=== PATIENT | female | born 1980 | race Caucasian/White ===

== ENCOUNTER → 2017-05-26 07:02 | Outpatient (CLI) | payer OTHER, SELFPAY ==
[2017-05-26 07:17] LABS: Bedside Glucose 95 mg/dL (70-110)
[2017-05-26 09:21] LABS: Glucose GTT-Gestation. Fasting 87 mg/dL (<105)
[2017-05-26 12:07] LABS: Glucose GTT-Gestational 1 Hr 172 mg/dL (<190)
[2017-05-26 12:07] LABS: Glucose GTT-Gestational 3 Hr 136 L (<145)
[2017-05-26 12:08] LABS: Glucose GTT-Gestational 2 Hr 133 mg/dL (<165)
== END ==
PROVIDERS: Family Provider Family Medicine; PCP Family Medicine; Visit Provider Obstetrics & Gynecology
DX: O99.815 Abnormal glucose complicating the puerperium (principal)
CPT/HCPCS: 36415; 82951; 82952; 82962

== ENCOUNTER → 2017-06-03 13:08 | Outpatient (CLI) | payer OTHER, SELFPAY ==
[2017-06-03 11:37] VITALS: BP 120/73; BMI 26.9
== END ==
PROVIDERS: Family Provider Family Medicine; PCP Family Medicine; Visit Provider Obstetrics & Gynecology
DX: R30.0 Dysuria (principal)
CPT/HCPCS: 87086; 87088

== ENCOUNTER → 2017-07-10 07:59 | Outpatient (CLI) | payer OTHER, SELFPAY ==
--- NOTE | 2017-07-10 08:01 | US_ITS ---
STUDY: SECOND AND THIRD TRIMESTER OBSTETRICAL ULTRASOUND - LIMITED REASON FOR EXAM: Female, 36 years old. Routine survey. LMP: November 01, 2016. PRIOR ULTRASOUND: Comparison is made with prior study dated March 27, 2017. TECHNIQUE: Transabdominal ultrasound evaluation was performed. FINDINGS: There is a single intrauterine fetus. The fetus is in a cephalic presentation. There is demonstrated cardiac activity with a heart rate of 129 bpm. There is a normal amniotic fluid volume. The largest amniotic fluid pocket measures 6.5 cm x 6.6 cm. The amniotic fluid index (AIDEE) is 15.1 cm. The placenta is posterior in location and is not low lying. There are Grade 1 placental changes. There is subvisualization of the cervix due to the position of the head. BIOMETRY: BPD: 8.26 cm: 33 weeks, 2 days HC: 30.59 cm: 34 weeks, 1 days AC: 31.5-6 on the: 35 weeks, 4 days FL: 6.76 on the: 34 weeks, 6 days Age by LMP: 35 weeks, 6 days. LAURIE by LMP: August 08, 2017. age by prior US: 35 weeks, 4 days. LAURIE by prior US: August 10, 2017. age by current US: 34 weeks, 4 days. LAURIE by current US: August 17, 2017. Estimated weight: 2538 grams, +/- 371 grams, 25 percentile. Gender: Indeterminant US/OB Limited With Biometrics IMPRESSION: Single live intrauterine gestation with a mean gestational age of 35 weeks and 4 days. The measurements obtained today following with an normal expected range. Electronically Signed: Lui Mojica MD at 11:16 EDT Tel [phone], Service support ,
== END ==
PROVIDERS: Family Provider Family Medicine; PCP Family Medicine; Visit Provider Obstetrics & Gynecology
DX: O26.843 Uterine size-date discrepancy, third trimester (principal); Z3A.00 Weeks of gestation of pregnancy not specified
CPT/HCPCS: 76816

== ENCOUNTER → 2017-07-15 12:13 | Outpatient (CLI) | payer OTHER, SELFPAY ==
[2017-07-15 15:09] LABS: Group B Strep DNA By PCR Negative (Negative); Internal Control PASS; Probe Check PASS; Specimen Processing Control PASS
== END ==
PROVIDERS: Family Provider Family Medicine; PCP Family Medicine; Visit Provider Obstetrics & Gynecology
DX: O09.529 Supervision of elderly multigravida, unspecified trimester (principal); Z3A.00 Weeks of gestation of pregnancy not specified
CPT/HCPCS: 87081; 87653

== ENCOUNTER 2017-08-04 08:55 | Inpatient (IN) | payer OTHER, SELFPAY ==
[2017-08-04 09:15] VITALS: BMI 28.3
[2017-08-04] MEDS: Lactated Ringers 1,000 ML 50 ML IV ×2 (09:20→10:29)
[2017-08-04 09:47] LABS: Hematocrit 32.4 % (37-47); Hemoglobin 10.8 g/dl (12.0-15.0); Mean Corp Hgb Conc 33.3 g/gl (32-36); Mean Corpuscular Hgb 28.1 pg (27.0-32.0); Mean Corpuscular Volume 84.4 fL (81-99); Mean Platelet Vol. 9.2 fl (6.2-12.0); Platelet Count 189 K/mm3 (150-450); RBC Distribution Width CV 13.8 % (11.6-14.6); RBC Distribution Width SD 41.9 fl (35.1-43.9); Red Blood Count 3.84 M/mm3 (4.2-5.4); Scan Indicated on CBC? Y/N NO; White Blood Count 13.7 K/mm3 (4.4-11.0)
[2017-08-04] MEDS: Oxytocin 30 units/NS 500 ml 30 UNITS/500 ML IV.SOLN 334 UNITS IV (12:50)
[2017-08-04] MEDS: Oxytocin 30 units/NS 500 ml 30 UNITS/500 ML IV.SOLN 167 UNITS IV (13:20)
[2017-08-04 19:15] VITALS: BP 119/76; PULSE 111; RESP 16; TEMP 37.4; O2SAT 98
[2017-08-05] MEDS: Naproxen 250 MG Tablet PO (00:08)
[2017-08-05 00:15] VITALS: BP 113/74; PULSE 84; RESP 16; TEMP 36.5; O2SAT 98
[2017-08-05 03:55] VITALS: BP 107/73; PULSE 85; RESP 16; TEMP 36.3; O2SAT 96
[2017-08-05 08:22] VITALS: BP 118/75; PULSE 98; RESP 16; TEMP 36.6; O2SAT 100
[2017-08-05] MEDS: Sertraline 100 MG Tablet PO (10:02)
[2017-08-05] MEDS: Prenatal Vits Tablet 1 TABLET PO (10:02)
--- NOTE | 2017-08-05 11:20 | HP.PCM_ITS ---
- Problem List (1) Active labor at term Status: Acute (2) Genital HSV Status: Acute Qualifiers: Comment: acyclovir at term (3) Uterine size-date discrepancy in third trimester Status: Acute Comment: growth us ordered (4) History of oligohydramnios in prior , currently in third trimester Status: Acute Comment: us at 36 weeks (5) , high-risk, maternal age 35+ multigravida Status: Acute Comment: PRR LAURIE 08/08/17 gender surprise PC Monster Everette Palomares (6) Abnormal glucose complicating the puerperium Status: Acute Comment: 3 hour gtt WNL History Date of Admission: 08/04/17 Final LAURIE: 08/10/17 Gestational age: 39 Weeks and 2 Days History of this : 36 yo @ 39 weeks presents iAL 8 cm Pertinent Past Medical History: Past Medical History (Last Reviewed 07/29/17 @ 11:28 by Penny Kelley) anxiety (Acute) depression (Acute) Past Surgical History (Last Reviewed 07/29/17 @ 11:28 by Penny Kelley) Adnoids (Acute) FPL Tendon Repair (Acute) Tonsils (Acute) basal cell (Acute) Mom's Labs & Results 08/04/17 08/04/17 09:20 09:20 WBC 13.7 H RBC 3.84 L Hgb 10.8 L Hct 32.4 L MCV 84.4 MCH 28.1 MCHC 33.3 RDW 13.8 RDW Differential 41.9 Plt Count 189 MPV 9.2 Blood Type B POSITIVE Antibody Screen NEGATIVE Course Did the patient receive Yes care? Labs Blood Type: B RH: POSITIVE RPR/VDRL/Syphilis Nonreactive Rubella status Immune HbSAg Negative Date Done: 02/03/17 Chlamydia Negative Gonorrhea Negative HIV/AIDS Non-Reactive Group B Strep: Negative Current Obstetrical History Gestational Diabetes No Incompetent Cervix No Infertility No IUGR No Macrosomia No Hypertension/Pre-eclampsia No Placenta Previa/Abruption No PTL/PROM No Uterine anomaly No Oligohydramnios No Polyhydramnios No Multiple gestation No Past Medical History Asthma No Diabetes No Hypertension No Heart disease No Mitral valve prolapse No Neurologic/Seizure disorder/ No Migraines Kidney disease No Liver disease No Varicosities No Clotting disorders/Hx of DVT No Thyroid Dysfunction No Other medical diseases No Psychiatric disorders Yes: depression/ anxiety Major trauma No Abnormal PAP smear Yes: 19 y/o, coloposcopy Sleep apnea No Mammogram in the last 2 years No Social History Marital Status: Alleged father Everette Childs Smoking No Smoking Status Never smoker Allergies dextromethorphan Allergy (Verified 07/29/17 11:27) Hives Current Medications Acetaminophen (Tylenol) 1,000 mg PO Q8H PRN PRN PRN Reason: MILD PAIN (1-3/10)/Temp>99.6F Bisacodyl (Dulcolax) 10 mg RECTAL UD PRN PRN Reason: If no BM Dibucaine (Dibucaine) 1 applic TOPICAL TID PRN PRN; Protocol PRN Reason: Discomfort Hydrocortisone (Hytone) 1 applic TOPICAL TID PRN PRN; Protocol PRN Reason: Discomfort Methylergonovine Maleate (Methergine) 0.2 mg IM X1 PRN PRN Reason: Excess bleeding/uterine atony Naproxen (Naprosyn) 250 - 500 mg PO Q8H PRN PRN PRN Reason: MILD PAIN (1-3/10) Last Admin: 08/05/17 00:08 Dose: 500 mg Ondansetron HCl (Zofran) 4 mg IV Q4H PRN PRN PRN Reason: Nausea Oxycodone HCl (Oxyir) 5 - 10 mg PO Q4H PRN PRN PRN Reason: MOD-SEVERE PAIN (4-10/10) Multivit/Folic Acid/Iron (Prenatabs Fa) 1 tablet PO DAILY [facility] Last Admin: 08/05/17 10:02 Dose: 1 tablet Senna/Docusate Sodium (Senokot-S, Ines-Colace) 1 - 2 tablet PO DAILY PRN PRN PRN Reason: Constipation Sertraline HCl (Zoloft) 100 mg PO DAILY [facility] Last Admin: 08/05/17 10:02 Dose: 100 mg Simethicone (Mylicon) 80 mg PO PCHS PRN PRN Reason: Indigestion/Stomach pain Sodium Chloride () 5 - 15 ml IV UD PRN PRN Reason: SALINE FLUSH Smoking Status: Never smoker Alcohol: None Drug Use: none Number of Fetus(es): 1 - fht 140 moderate variability reactive Review of Systems Constitutional: Denies: Chills, Fever, Weight Change HEENT: Denies: Head Aches, Sinus Congestion, Sinus Drainage Cardiovascular: Denies: Chest Pain, Palpitations Respiratory: Denies: Cough, Shortness of breath at rest, Sputum production Gastrointestinal: Reports: Abdominal Pain. Denies: Nausea, Vomiting Genitourinary: Denies: Dysuria Gynecological: Reports: Vaginal bleeding, Vaginal discharge Musculoskeletal: Denies: Joint Pain, Joint Tenderness Skin: Denies: Rash, Wounds Neurological: Denies: Numbness, Tingling, Focal weakness Psychiatric: Denies: Anxiety, Depression, Homicidal Ideations, Suicidal Ideations Hematologic/ Lymphatic: Denies: Easy Bruising, Easy Bleeding Physical Exam Vitals: Vital Signs Temp Pulse Resp BP Pulse Ox 97.8 F 98 16 118/75 100 08/05/17 08:22 08/05/17 08:22 08/05/17 08:22 08/05/17 08:22 08/05/17 08:22 General: Alert, Oriented x3, No apparent distress Cardiovascular: Regular rate Lungs: Normal air movement Abdomen: Soft, Non Tender, Gravid Extremities:: No edema Estimated gestational size: Appropriate for gestational size Presentation: Cephalic Cervix Dilation (cm): 8 Assessment/Plan Active and Suspected Problems (Last Reviewed 07/29/17 @ 11:28 by Penny Kelley) Active labor at term (Acute) 36 y o 39 weeks IAL epi arom clear fluid
--- NOTE | 2017-08-05 11:20 | PCM.OB.VAG ---
- Problem List (1) Active labor at term Status: Acute (2) Genital HSV Status: Acute Qualifiers: Comment: acyclovir at term (3) Uterine size-date discrepancy in third trimester Status: Acute Comment: growth us ordered (4) History of oligohydramnios in prior , currently in third trimester Status: Acute Comment: us at 36 weeks (5) , high-risk, maternal age 35+ multigravida Status: Acute Comment: PRR LAURIE 08/08/17 gender surprise PC Monster Everette Palomares (6) Abnormal glucose complicating the puerperium Status: Acute Comment: 3 hour gtt WNL Vaginal Delivery Maternal Presentation: Active Labor 39 weeks Amniotic Membrane Rupture Type: Artificial Amniotic Fluid Description: Clear Final LAURIE: 08/10/17 Gestational age: 39 Weeks and 2 Days Date of Procedure: 08/04/17 Pre-Operative Diagnosis: In active labor Post-Operative Diagnosis: same Surgery/ Procedure Performed: Spontaneous Vaginal Delivery Type of Anesthesia: Epidural Description of Procedure: Patient began pushing and delivered the head in the JESSA presentation. The head was delivered atraumatically . The anterior and posterior shoulders delivered without complication followed by the rest of the infant and the was placed on the maternal abdomen. Delayed cord clamping was employed for approximately 60 seconds. Cord was clamped and cut and gentle traction was applied to the cord and the placenta delivered spontaneously immediately following it was noted to be intact with three-vessel cord. The perineum and vagina were inspected and noted to have no laceration. EBL was 200 cc. Patient and infant tolerated delivery well. Presentation: JESSA Placental Delivery Description: Spontaneous Placenta Disposition: [facility] Cord Vessel Description: 3 Vessels Cord Entanglement: None Infant A gender: Female Episiotomy Description: None Laceration: None Medications given after delivery: IV Pitocin Complications: None
--- NOTE | 2017-08-05 11:23 | PCM.PN.OB ---
Patient Problems: Active and Suspected Problems (Last Reviewed 07/29/17 @ 11:28 by Penny Kelley) Active labor at term (Acute) Subjective: doing well n ocomplaints - Physical Exam General: Alert, Oriented x3 Vital Signs Temp Pulse Resp BP Pulse Ox 97.8 F 98 16 118/75 100 08/05/17 08:22 08/05/17 08:22 08/05/17 08:22 08/05/17 08:22 08/05/17 08:22 Oxygen Delivery Method Room Air Weight: 145 lb 4.554 oz Body Mass Index (BMI) 28.3 Intake and Output for Last 24 Hours 08/03/17 08/04/17 08/05/17 23:59 23:59 23:59 Intake Total 2184 / 2184 Output Total 600 / 600 Balance 1584 / 1584 Medical Necessity - Tobacco Use Smoking Status: Never smoker Assessment/Plan Active and Suspected Problems (Last Reviewed 07/29/17 @ 11:28 by Penny Kelley) Active labor at term (Acute) p routine care sd home
--- NOTE | 2017-08-05 11:23 | PCM.DCVAG ---
Discharge Diet: No Restrictions Discharge Activity: Return to Normal Activity, May not drive while taking narcotic pain medications., May Shower May resume sexual activity in: 4-6 weeks Call your doctor if your incision/area has: Continuous Slow Oozing, Sudden Increased Bleeding, Increased Pain/ Swelling, Increased Redness, Foul Smelling Discharge Additional Instructions: If you experience any of the following, contact your healthcare provider. Bleeding that soaks a pad every hour for 2 hours Fever 100.4 or higher Unrelieved incision or abdominal pain Swelling, redness, discharge or bleeding from your incision or episiotomy site Your incision begins to separate Problems urinating (including inability to urinate or burning while urinating). Visual changes Severe headache Flu-like symptoms Pain or redness in one of both of your breasts Pain, warmth, tenderness or swelling in your legs, especially the calf area Frequent nausea and vomiting Symptoms of depression or anxiety If you experience any of the following, call 911 or go to the nearest Emergency Room. Chest pain Problems breathing Seizure activity Partial or complete paralysis of a body part, slurred speech, weakness or drooping of the face, or a sudden inability to walk or hold your balance Allergies/Adverse Reactions: Allergies dextromethorphan Allergy (Verified 07/29/17 11:27) Hives Medications to take at Discharge Vits [Prenatabs FA ] 1 tab PO DAILY 09/07/15 Zoloft 100 mg PO DAILY 09/07/15 Valacyclovir HCl [Valacyclovir] 500 mg PO BID 08/04/17 Please Follow Up With: Virgen Mcnally MD - [phone] When: Call to make an appointment with your doctor in 6 weeks. If you had elevated Blood pressure or 4th degree laceration you will need to be seen in 2 weeks. Primary Care Physician: Everette Palomares DO [Primary Care Provider] -
--- NOTE | 2017-08-05 11:24 | DCINST_ITS ---
Discharge Diet: No Restrictions Discharge Activity: Return to Normal Activity, May not drive while taking narcotic pain medications., May Shower May resume sexual activity in: 4-6 weeks Call your doctor if your incision/area has: Continuous Slow Oozing, Sudden Increased Bleeding, Increased Pain/ Swelling, Increased Redness, Foul Smelling Discharge Additional Instructions: If you experience any of the following, contact your healthcare provider. * Bleeding that soaks a pad every hour for 2 hours * Fever 100.4 or higher * Unrelieved incision or abdominal pain * Swelling, redness, discharge or bleeding from your incision or episiotomy site * Your incision begins to separate * Problems urinating (including inability to urinate or burning while urinating) . * Visual changes * Severe headache * Flu-like symptoms * Pain or redness in one of both of your breasts * Pain, warmth, tenderness or swelling in your legs, especially the calf area * Frequent nausea and vomiting * Symptoms of depression or anxiety If you experience any of the following, call 911 or go to the nearest Emergency Room. * Chest pain * Problems breathing * Seizure activity * Partial or complete paralysis of a body part, slurred speech, weakness or drooping of the face, or a sudden inability to walk or hold your balance Allergies/Adverse Reactions: Allergies dextromethorphan Allergy (Verified 07/29/17 11:27) Hives Medications to take at Discharge Vits [Prenatabs FA ] 1 tab PO DAILY 09/07/15 Zoloft 100 mg PO DAILY 09/07/15 Valacyclovir HCl [Valacyclovir] 500 mg PO BID 08/04/17 Please Follow Up With: Virgen Mcnally MD - [phone] When: Call to make an appointment with your doctor in 6 weeks. If you had elevated Blood pressure or 4th degree laceration you will need to be seen in 2 weeks. Primary Care Physician: Everette Palomares DO [Primary Care Provider] -
[2017-08-05 12:00] VITALS: BP 114/76; PULSE 95; RESP 16; TEMP 36.7; O2SAT 98
--- NOTE | 2017-08-05 13:30 | NURSING ---
Talked with patient about history of anxiety and depression. Asked patient if she feels like she has the resources she needs or if she would like to talk with social service coordinator prior to discharge. Pt stated she had needed resources and did not wish to talk with social service coordinator.
--- NOTE | 2017-08-05 14:53 | NURSING ---
Reviewed and agreed with Student RN charting.
== END 2017-08-05 14:45 | disposition home or self-care (01) | DRG 774 ==
PROVIDERS: Admitting Provider Obstetrics & Gynecology; Family Provider Family Medicine; PCP Family Medicine; Visit Provider Obstetrics & Gynecology
DX: O98.52 Other viral diseases complicating childbirth (principal); B00.9 Herpesviral infection, unspecified; O26.843 Uterine size-date discrepancy, third trimester; O09.523 Supervision of elderly multigravida, third trimester; O99.343 Other mental disorders complicating pregnancy, third trimester; F32.9 Major depressive disorder, single episode, unspecified; F41.9 Anxiety disorder, unspecified; O99.815 Abnormal glucose complicating the puerperium; Z37.0 Single live birth; Z3A.39 39 weeks gestation of pregnancy; Z87.59 Personal history of other complications of pregnancy, childbirth and the puerperium
CPT/HCPCS: 59025; 59050; 85027; 86850; 86900; 99218; J7120; G0378

== ENCOUNTER 2017-08-15 09:00 | Outpatient (CLI) | payer OTHER, SELFPAY | END 2017-08-15 10:00 | disposition home or self-care (01) | LOC: WPOUT 09:06 → WP 09:08 | PROVIDERS: Family Provider Family Medicine; PCP Family Medicine; Visit Provider Obstetrics & Gynecology | DX: O92.79 Other disorders of lactation (principal) | CPT/HCPCS: 96152 ==

== ENCOUNTER → 2017-09-15 19:20 | Outpatient (CLI) | payer OTHER, SELFPAY ==
[2017-09-19 11:38] LABS: HPV APTIMA, High Risk Negative (Negative)
== END ==
PROVIDERS: Family Provider Family Medicine; PCP Family Medicine; Visit Provider Obstetrics & Gynecology
DX: Z12.4 Encounter for screening for malignant neoplasm of cervix (principal)
CPT/HCPCS: 88175; G0145

== ENCOUNTER → 2018-08-31 16:17 | Outpatient (CLI) | payer OTHER, SELFPAY ==
[2018-08-31 16:17] VITALS: BMI 26.9
[2018-08-31 17:54] LABS: Absolute Lymphocyte Count 2.75 X10^3/ul (0.83-4.51); Absolute Neutrophil Count 3.9 X10^3/uL (2.0-7.7); Basophil# 0.04 X10^3/uL; Basophil% 0.5 % (0-1); Eosinophil# 0.23 X10^3/uL; Hematocrit 41.9 % (37-47); Lymphocyte # 2.75 X10^3/ul (4.0); Lymphocyte % 35.9 % (19-41); Mean Corp Hgb Conc 33.4 g/gl (32-36); Mean Corpuscular Hgb 28.9 pg (27.0-32.0); Mean Corpuscular Volume 86.6 fL (81-99); Mean Platelet Vol. 9.2 fl (6.2-12.0); Monocyte# 0.73 X10^3/uL; Monocyte% 9.5 % (0-10); Platelet Count 217 K/mm3 (150-450); RBC Distribution Width SD 41.6 fl (35.1-43.9); Red Blood Count 4.84 M/mm3 (4.2-5.4); White Blood Count 7.7 K/mm3 (4.4-11.0)
[2018-08-31 17:55] LABS: POSITIVE COUNT NO; POSITIVE DIFFERENTIAL NO; POSITIVE MORPHOLOGY NO
[2018-08-31 18:00] LABS: Erythrocyte Sedimentation Rate 4 mm/hr (0-20)
[2018-08-31 18:30] LABS: Ferritin 16 ng/mL (8-252); Rheumatoid Factor < 10.0 IU/mL (<15); Thyroid Stim Hormone (TSH) 1.17 uIU/mL (0.358-3.74)
[2018-09-03 15:55] LABS: ANTINUCLEAR ANTIBODIES DIRECT Negative (Negative)
== END ==
PROVIDERS: Family Provider Family Medicine; PCP Family Medicine; Visit Provider Family Medicine
DX: M25.50 Pain in unspecified joint (principal); L65.9 Nonscarring hair loss, unspecified; D64.9 Anemia, unspecified; R53.83 Other fatigue
CPT/HCPCS: 36415; 82728; 84443; 85025; 85652; 86038; 86225; 86235; 86431

== ENCOUNTER → 2020-02-22 14:11 | Outpatient (CLI) | payer OTHER, SELFPAY ==
[2018-08-31 16:17] VITALS: BMI 26.9
--- NOTE | 2020-02-22 14:16 | BI_ITS ---
MAMMOGRAPHY - BILATERAL DIAGNOSTIC REASON FOR EXAM: Female, 39 years old. Left breast lump. PERTINENT HISTORY: Non-contributory. TECHNIQUE: Digital bilateral breast kt (3D mammographic acquisition) in the CC and MLO projections. 2-D mediolateral oblique (MLO) and craniocaudad (CC) views of both breasts were obtained. CAD: Full Field Digital Mammography with Computer Added Detection was performed. COMPARISON: None. Baseline examination. FINDINGS: Breast Composition: The breasts are extremely dense, which lowers the sensitivity of mammography. There are no dominant masses or suspicious calcifications. Scattered calcifications in the upper outer quadrant of the left breast. No focal cluster is seen. No other significant abnormalities are identified. BI/DIAG MAMM W/CAD, BILAT IMPRESSION: Negative diagnostic mammogram. With the patient''s history of a breast lump in the upper outer quadrant of the left breast, correlation with ultrasound recommended. ASSESSMENT CATEGORY: BIRADS Category 0: Incomplete. Need additional imaging evaluation. A letter regarding these results will be sent to the patient by the facility within 30 days. Approximately 10% of breast cancers are not detected by mammography. A normal mammogram should not delay biopsy of a clinically suspicious abnormality. Electronically Signed: Lui Mojica, at 15:25 EDT , Service support ,
--- NOTE | 2020-02-22 14:16 | US_ITS ---
STUDY: ULTRASOUND BREAST - LEFT REASON FOR EXAM: Female, 39 years old. Palpable lump left breast. TECHNIQUE: Axial and longitudinal images of the LEFT breast were performed with a high resolution ultrasound transducer. # OF IMAGES: 13 COMPARISON: Comparison is made with prior mammogram done earlier today. FINDINGS: LEFT Breast: The upper outer quadrant of the left breast was examined by ultrasound. The palpable abnormality corresponds to a 5 mm x 4 mm x 3 mm benign appearing. US/Breast Limited Unilateral IMPRESSION: The palpable abnormality corresponds to a benign appearing 5 mm x 4 mm x 3 mm lymph node. ASSESSMENT CATEGORY: BIRADS Category 2: Benign. A letter regarding these results will be sent to the patient by the facility within 30 days. Electronically Signed: Lui Mojica, at 15:17 EDT , Service support ,
== END ==
PROVIDERS: PCP Family Medicine; Referring Provider Family Medicine; Visit Provider Family Medicine
DX: N63.21 Unspecified lump in the left breast, upper outer quadrant (principal)
CPT/HCPCS: 76642; 77062; 77066; G0279

== ENCOUNTER → 2021-04-04 | Outpatient (CLI) | payer OTHER, SELFPAY | END | disposition home or self-care (01) | LOC: LABSPEC 15:37 | PROVIDERS: PCP Family Medicine; Visit Provider Family Medicine | DX: Z20.822 Contact with and (suspected) exposure to COVID-19 (principal) | CPT/HCPCS: 87635; U0005; U0003 ==

== ENCOUNTER → 2021-04-23 | Outpatient (CLI) | payer OTHER, SELFPAY | END | disposition home or self-care (01) | LOC: LABSPEC 12:43 | PROVIDERS: PCP Family Medicine; Visit Provider Family Medicine | DX: Z20.822 Contact with and (suspected) exposure to COVID-19 (principal) | CPT/HCPCS: 87635; U0005; U0003 ==

== ENCOUNTER → 2025-04-22 | Outpatient (CLI) | payer BC, SELFPAY ==
--- NOTE | 2025-04-22 13:59 | BI_ITS ---
EXAM: DIAG MAMM W/CAD, BILAT N/A CLINICAL HISTORY: F, Age 44 y/o , BREAST LUMP right breast palpable abnormality. TECHNIQUE: Procedure Code: [id number] Modality: MG Procedure: DIAG MAMM W/CAD, BILAT. COMPARISON: Prior exam(s) dated 02/22/2020 FINDINGS: TISSUE DENSITY: The breasts are extremely dense, which lowers the sensitivity of mammography. Bilateral Breast Mammographic Findings: A radiopaque marker is placed over the right breast palpable abnormality. This is located in the upper-outer quadrant of the right breast. There is no mammographic abnormality to correlate. Due to the extremely dense breast tissue in this location, an underlying mass could be present and be obscured by the dense breast tissue. Further workup with ultrasound will be performed for further evaluation. Benign round microcalcifications and vascular calcifications are seen in the right breast. Benign round microcalcifications and vascular calcifications are seen in the left breast. No suspicious masses, suspicious cluster of microcalcifications, architectural distortion or secondary signs of malignancy is identified in the left breast. BI/DIAG MAMM W/CAD, BILAT IMPRESSION: The right breast palpable abnormality will be further worked up with ultrasound . Please see that report. OVERALL FINAL ASSESSMENT BI-RADS 0: INCOMPLETE - NEED ADDITIONAL IMAGING EVALUATION. RECOMMENDATION: Ultrasound Recommended Additional Recommendation none A letter with findings and recommendations will be mailed to the patient. Reading Location: [id number]
--- NOTE | 2025-04-22 14:00 | US_ITS ---
PROCEDURE: BREAST LIMITED UNILATERAL 04/22/2025 REASON FOR EXAM: F, Age 44 y/o , RIGHT BREAST LUMP Palpable abnormality right breast. COMPARISON: Mammogram dated 04/22/2025. TECHNIQUE: Procedure Code: USBRSTLIMIT Modality: US Procedure: BREAST LIMITED UNILATERAL FINDINGS: There is no ultrasound abnormality identified in the right breast to correlate to the area that is palpable. The palpable abnormality at the 10 o'clock, 7 cm from the nipple position appears to represent a ridge of normal breast tissue. No suspicious solid or cystic masses are seen in this location. US/Breast Limited Unilateral IMPRESSION: There is no ultrasound abnormality identified in the right breast to correlate to the area that is palpable. The palpable abnormality at the 10 o'clock, 7 cm from the nipple position appears to represe nt a ridge of normal breast tissue. No suspicious solid or cystic masses are seen in this location. BI-RADS 1: NEGATIVE RECOMMENDATION: Routine annual follow-up in 1 Year Reading Location: [id number]
--- OUTSIDE RECORDS SUMMARY | 2025-04-22 14:11 | XMS RPT_ITS | CCD ---
Author Organization [facility] Inform ion Partnership [facility] Care Team Providers Care Combat Systems Officer Name Role Phone Virgen Mcnally MD Unavailable [phone] BESSY GALLOWAY Unavailable Unavailable VIRGEN MCNALLY Unavailable Unavailyolie MILLER PRIMARY CAREMD Unavailable Unavailable Allergies Allergy Classification Reported Allergen(s) Allergy Type Date of Onset Reaction(s) Facility (2 sources) guaiFENesin Drug Allergy 11-14-2015 [facility] (2 sources) ROBATUSIN drug allergy 11-14-2015 [facility] Medications Completed/Discontinued Medications Medication Drug Class(es) Dates Sig (Normalized) Sig (Original) calcium (2 sources) Phosphate Binder, Calcium Start: 01-07-2017 CALCIUM 600 MG TABS CALCIUM [id number] Virgen Mcnally MD cetirizine hydrochloride 10 mg oral capsule (2 sources) Histamine-1 Receptor Antagonist Start: 11-14-2015 take 1 capsule by mouth once daily ZYRTEC ALLERGY 10 MG CAPS 1 po daily CETIRIZINE HCL 28993963096 Darleen Patino folic acid 0.8 mg oral tablet (2 sources) Start: 01-07-2017 FOLIC ACID 800 MCG TABS FOLIC ACID [id number] Virgen Mcnally MD magnesium gluconate (2 sources) Start: 11-14-2015 take 2 tablets by mouth once daily MAGNESIUM GLUCONATE 500 (27 MG) MG ORAL TABS 2 PO daily MAGNESIUM GLUCONATE [id number] Darleen Patino VIT-FE FUMARATE-FA (2 sources) Start: 11-14-2015 VITAMIN 27-0.8 MG TABS VIT-FE FUMARATE-FA [id number] Darleen Edwardgregtemitope sertraline 100 mg oral tablet (2 sources) Serotonin Reuptake Inhibitor Start: 11-14-2015 SERTRALINE HCL 100 MG TABS SERTRALINE HCL [id number] Darleen Patino Problems Active Problems Problem Classification Problem Date Documented Da te Episodic/Chronic Other acquired deformities (2 sources) Scoliosis deformity of spine; Translations: [Scoliosis, unspecified] Onset: 11-14-2015 11-14-2015 Chronic Unclassified (2 sources) Aftercare ; Translations: [Encounter for other specified surgical aftercare] Onset: 12-04-2015 12-12-2015 Past or Other Problems Problem Classification Problem Date Documented Date Episodic/Chronic Headache, including migraine (2 sources) Headache; Translations: [Headache] Onset: 11-14-2015 11-14-2015 Episodic Neoplasms of unspecified nature or uncertain behavior (2 sources) Neoplasm of skin; Translations: [Neoplasm of unspecified behavior of bone, soft tissue, and skin] Onset: 11-14-2015 11-20-2015 Episodic Normal and/or delivery (6 sources) Gestation period, 9 weeks; Translations: [Gestation period, 13 weeks] Onset: 01-07-2017 01-08-2017 Episodic Other complications of (4 sources) Multigravida of advanced maternal age; Translations: [Supervision of elderly multigravida, first trimester] Onset: 01-07-2017 01-07-2017 Episodic Other connective tissue disease (2 sources) Radial styloid tenosynovitis; Translations: [Radial styloid tenosynovitis [de Quervain]] Onset: 02-14-2017 02-18-2017 Episodic Other non-epithelial cancer of skin (2 sources) Basal cell carcinoma of scalp; Translations: [Basal cell carcinoma of skin of scalp and neck] Onset: 12-04-2015 12-12-2015 Episodic Other non-traumatic joint disorders (2 sources) Pain in wrist; Translations: [Pain in left wrist] Onset: 02-14-2017 02-14-2017 Episodic Unclassified (2 sources) Family history of malignant neoplasm of skin; Translations: [Family history of malignant neoplasm of other organs or systems] Onset: 11-14-2015 11-20-2015 Episodic Results Test Name Value Interpretation Reference Range Facil ity COVID 19, DONNY [facility]CH(RT COLLECT )on 04-23-2021 SARS-CoV-2 (COVID-19) RNA DONNY+probe Ql (Unsp spec) Not detected Normal Not Detect [facility] Comment on above: Result Comment: Norm al Reference Range: Not Detected Method:(RT-PCR) real-time reverse transcriptase PCR Luminex DIONNA Instrument *The Food and Drug Administration (FDA) has issued an Emergency Use Authorization (EAU) for the DIONNA SARS-CoV-2 Assay for the rapid detection of the virus that causes COVID-19. This test has been validated, but the FDAs independent review of this validation is pending. *Negative results do not preclude infection and should not be used as the sole basis for treatment or patient management. Optimum specimen types and timing for peak viral levels during infections caused by SARS-CoV-2 have not been determined. Collection of multiple specimens from the same patient may be necessary to detect the virus. The possibility of a false negative result should be considered if the patient has clinical presentation or has had recent exposure. Performed By: #### L [id number] #### [facility] [place], [address] COVID 19, DONNY WCH(RT COLLECT )on 04-04-2021 SARS-CoV-2 (COVID-19) RNA DONNY+probe Ql (Unsp spec) Not detected Normal Not Detect [facility] Comment on above: Result Comment: Norm al Reference Range: Not Detected Method:(RT-PCR) real-time reverse transcriptase PCR Luminex DIONNA Instrument *The Food and Drug Administration (FDA) has issued an Emergency Use Authorization (EAU) for the DIONNA SARS-CoV-2 Assay for the rapid detection of the virus that causes COVID-19. This test has been validated, but the FDAs independent review of this validation is pending. *Negative results do not preclude infection and should not be used as the sole basis for treatment or patient management. Optimum specimen types and timing for peak viral levels during infections caused by SARS-CoV-2 have not been determined. Collection of multiple specimens from the same patient may be necessary to detect the virus. The possibility of a false negative result should be considered if the patient has clinical presentation or has had recent exposure. Performed By: #### [id number] #### [facility] [address] [place], [address] Office Visit: OB Routineon 1 05-04-2016 Documentation of current medications (procedure) Done Invalid Interpretation Code [facility] Urine, glucose presence N Invalid Interpretation Code [facility] Urine, protein N Invalid Interpretation Code [facility] Lab Report: Miscellaneous La b Procedureon 02-15-2017 MISC LAB TEST . Invalid Interpretation Code [facility] Office Visiton 02-14-2017 Alcoholism counseling (procedure) no Invalid Interpretation Code [facility] Dietary management education, guidance, and counseling (procedure) yes Invalid Interpretation Code [facility] Tobacco smoking status NHIS Never Invalid Interpretation Code [facility] Tobacco use CPHS Never smoker Invalid Interpretation Code [facility] Lab Report: Rapid Plasmin Re agin (RPR)on 02-07-2017 Reagin antibody presence NONREACTIVE Invalid Interpretation Code NONREACTIVE [facility] Lab Report: Hepatitis B Surf chanel Agon 02-04-2017 BSA (Body Surface Area) Negative Invalid Interpretation Code Negative [facility] Lab Report: CBC W/Diff, Auto matedon 02-03-2017 Absolute Neut 6.5 X10 3/UL Invalid Interpretation Code 2.0-7.7 [facility] Basophils/100 WBC Auto (Bld) 0.2 % Invalid Interpretation Code 0-1 [facility] Eosinophils/100 leukocytes 1.2 % Invalid Interpretation Code 0-5 [facility] Erythrocyte distribution width Auto Ratio (RBC) 12.5 % Invalid Interpretation Code 11.6-14.6 [facility] Erythrocytes (RBC) 4.25 10*6/uL Invalid Interpretation Code 4.2-5.4 [facility] Hematocrit (HCT) 36.1 % Low 37-47 [facility] Hemoglobin mass conc (Bld) 13.0 g/dL Invalid Interpretation Code 12.0-15.0 [facility] Immature granulocytes/100 WBC (Bld) 0.200 % Invalid Interpretation Code 0.0-0.9 [facility] Lymphocytes 1.84 X10 3/UL Invalid Interpretation Code 0.83-4.51 [facility] Lymphocytes/100 leukocytes 20.3 % Invalid Interpretation Code 19-41 [facility] MCH 30.6 pg Invalid Interpretation Code 27.0-32.0 [facility] MCHC mass conc (RBC) 36.0 G/GL Invalid Interpretation Code 32-36 [facility] MCV 84.9 fL Invalid Interpretation Code 81-99 [facility] Monocytes/100 leukocytes 6.5 % Invalid Interpretation Code 0-10 [facility] Neutrophils/100 WBC Auto (Bld) 71.6 % High 47-70 [facility] Platelets 246 10*3/mm3 Invalid Interpretation Code 150-450 [facility] PMV by Lizzette 9.0 fL Invalid Interpretation Code 6.2-12.0 [facility] RDW SD 37.5 fL Invalid Interpretation Code 35.1-43.9 [facility] WBC (Leukocytes) 9.1 10*3/uL Invalid Interpretation Code 4.4-11.0 [facility] Lab Report: Rubella IgGon Rubella IgG > 500.0 Invalid Interpretation Code [facility] Lab Report: CT/NG WCH BY PCR on 01-08-2017 Chlamydia trachomatis DNA [Presence] in Urine by Probe and target amplification method Negative Invalid Interpretation Code Negative [facility] Neisseria gonorrhoeae presence Negative Invalid Interpretation Code Negative [facility] Office Visit: OB Initialon 0 01-07-2017 estimated date of confinement by sonogram 08/08/2017 Invalid Interpretation Code [facility] Fall risk assessment No Invalid Interpretation Code [facility] gestational age by ultrasound 9W 4D Invalid Interpretation Code [facility] Lab Report: ,Urineo n 11-30-2015 HCG.beta subunit ( test) Ql (U) Negative Invalid Interpretation Code [facility] Office Visit: OB Initialon 1 General categories [Interpretation] of Cervical or vaginal smear or scraping by Cyto stain Normal Invalid Interpretation Code [facility] Vital Signs Date Time Vital Sign Value Performing Clinician Faci lity 03-04-2017 15:01-0500 BMI (Body Mass Index) 25.54 kg/m2 Virgen Mcnally MD [facility] 03-04-2017 15:01-0500 Body Temperature 97.2 [degF] Virgen Mcnally MD [facility] 03-04-2017 15:01-0500 BP Diastolic 77 mm[Hg] Virgen Mcnally MD [facility] 03-04-2017 15:01-0500 BP Systolic 118 mm[Hg] Virgen Mcnally MD [facility] 03-04-2017 15:01-0500 Pulse (Heart Rate) 101 /min Virgen Mcnally MD [facility] 03-04-2017 15:01-0500 Respiratory Rate 16 /min Virgen Mcnally MD [facility] 03-04-2017 15:01-0500 Weight 58.33 kg Virgen Mcnally MD [facility] 01-07-2017 13:44-0400 Body Temperature 97 [degF] Virgen Mcnally MD [facility] 01-07-2017 13:44-0400 Height 151.13 cm Virgen Mcnally MD [facility] 01-07-2017 13:44-0400 Weight 55.34 kg Virgen Mcnally MD [facility] 12-11-2015 15:34-0400 BSA (Body Surface Area) 1.54 m2 Virgen Mcnally MD [facility] Encounters Encounter Date Encounter Type Care Provider Facility Start: 02-03-2017 Ambulatory [facility] Procedures Date Procedure Procedure Detail Performing Clinician Start: 03-04-2017 End: 03-04-2017 Routine OB Visit (Global) Virgen garcia MD Work Phone: Start: 02-14-2017 End: 02-18-2017 Arthrocentesis aspir&/inj interm jt/burs w/o us Zuleyka Palencia Work Phone: Start: 02-04-2017 End: 02-04-2017 Routine OB Visit (Global) Virgen garcia MD Work Phone: Start: 01-08-2017 End: 02-17-2017 *GC/Chlamydia Virgen Mcnally MD Work Phone: Start: 01-08-2017 End: 02-17-2017 Bacteria identified in Urine by Culture Virgen Mcnally MD Work Phone: Start: 01-07-2017 End: 02-04-2017 *CBC with Differential Virgen gamboa MD Work Phone: Start: 01-07-2017 End: 01-08-2017 *GC/Chlamydia Virgen Mcnally MD Work Phone: Start: 01-07-2017 End: 02-05-2017 *HEBSAG - Hep B Surface Antigen 6510 Virgen Mcnally MD Work Phone: Start: 01-07-2017 End: 02-05-2017 *HIV antibody Virgen Mcnally MD Work Phone: Start: 01-07-2017 End: 01-08-2017 *TS Type and Screen Virgen Mcnally MD Work Phone: Start: 01-07-2017 End: 01-08-2017 Bacteria identified in Urine by Culture Virgen Mcnally MD Work Phone: Start: 01-07-2017 End: 02-07-2017 Reagin Ab [Presence] in Serum by RPR Virgen Mcnally MD Work Phone: Start: 01-07-2017 End: 01-08-2017 Routine OB Visit (Global) Virgen garcia MD Work Phone: Start: 01-07-2017 End: 02-04-2017 Rubella virus Ab [Units/volume] in Serum Virgen Mcnally MD Work Phone: Start: 11-14-2015 End: 12-05-2015 Follow Up Appt Other Dakota Estrella MD Plan of Treatment Date Care Activity Detail Author Start: 04-01-2017 End: 04-01-2017 Appointment Appointment [facility] Start: 03-04-2017 End: 03-04-2017 Appointment Appointment [facility] Start: 02-14-2017 End: 02-14-2017 Radex wrist complete minimum 3 views X-Ray, Wrist [facility] Start: 01-08-2017 End: 02-17-2017 *GC/Chlamydia *GC/Chlamydia [facility] Start: 01-08-2017 End: 02-17-2017 Urine culture, bacteria *CUUR - Culture, Urine ([place] Count) [facility] Start: 01-07-2017 End: 01-08-2017 *CBC with Differential *CBC with Differential [facility] Start: 01-07-2017 End: 01-08-2017 *GC/Chlamydia *GC/Chlamydia [facility] Start: 01-07-2017 End: 01-08-2017 *HEBSAG - Hep B Surface Antigen 6510 *HEBSAG - Hep B Surface Antigen 6510 [facility] Start: 01-07-2017 End: 01-08-2017 *HIV antibody *HIV antibody [facility] Start: 01-07-2017 End: 01-08-2017 *TS Type and Screen *TS Type and Screen [facility] Start: 01-07-2017 End: 01-08-2017 Reagin antibody presence *RPR [facility] Start: 01-07-2017 End: 01-08-2017 Rubella virus Ab [Units/volume] in Serum *Rubella Screen [facility] Start: 01-07-2017 End: 01-08-2017 Urine culture, bacteria *CUUR - Culture, Urine ([place] Count) [facility] Start: 12-11-2015 End: 12-12-2015 Follow Up Appt 6 months Follow Up Appt 6 months [facility] Start: 12-04-2015 End: 12-12-2015 Follow up Appt 1 week Follow up Appt 1 week [facility] Start: 11-14-2015 End: 12-05-2015 Follow Up Appt Other Follow Up Appt Other [facility] Payers Date Payer Category Payer Policy ID Unknown [id number] Summary Purpose Family History No Family History Records FoundNo Family History Records Found Advance Directives No Advanced Directives Records FoundNo Advanced Directives Records Found Additional Source Comments INFORMATION SOURCE (unrecogn ized section and content) DATE CREATED AUTHOR 10/21/2017 [facility] DATE CREATED AUTHOR AUTHOR'S ORGANIZ ATION 07/24/2021 [facility] FOR RECORDS PERTAINING TO PATIENTS WHO ARE OR HAVE BEEN ENROLLED IN A CHEMICAL DEPENDENCY/SUBSTANCEABUSE PROGRAM, SOME INFORMATION MAY BE OMITTED. This clinical summary was aggregated from multiple sources. Caution should be exercised in using it in the provision of clinical care. This summary normalizes information from multiple sources, and as a consequence, information in this document may materially change the coding, format and clinical context of patient data. In addition, data may be omitted in some cases. CLINICAL DECISIONS SHOULD BE BASED ON THE PRIMARY CLINICAL RECORDS. [facility]. provides no warranty or guarantee of the accuracy or completeness of information in this document.
== END | disposition home or self-care (01) ==
LOC: OPBI 13:57
PROVIDERS: PCP Family Medicine; Referring Provider Family Medicine; Visit Provider Family Medicine
DX: N63.10 Unspecified lump in the right breast, unspecified quadrant (principal)
CPT/HCPCS: 76642; 77062; 77066; G0279